=== PATIENT | female | born 1965 | race Caucasian/White ===

== ENCOUNTER 2018-01-14 06:36 | Day surgery (SDC) | payer OTHER ==
[~2018-01-14 06:36] MED LIST: Lactated Ringers 1,000 ML IV SCH
[2018-01-14] MEDS ORDERED: Lactated Ringers 1,000 ML IV SCH (07:15)
[2018-01-14] MEDS ORDERED: fentaNYL 100 MCG/2 ML SDV ONE (07:51)
[2018-01-14] MEDS ORDERED: Propofol 200 MG/20 ML SDV ONE (07:51)
[2018-01-14 09:26] VITALS: BP 97/58
--- NOTE | 2018-01-14 11:16 | OR ---
DATE OF SURGERY: 01/14/2018. REFERRING PROVIDER: CASSIDY Joya. PRE-OPERATIVE DIAGNOSES: Screening colonoscopy. This is the patient's first colonoscopy. There is no known family history of colon cancer or colon polyps. POST-OPERATIVE DIAGNOSES: 1. A 5 mm polyp at 25 cm removed with hot snare. 2. Otherwise normal colon. PROCEDURE: Colonoscopy with polypectomy x1 using hot snare. SURGEON: Christo Wilder M.D. ANESTHESIA: Monitored anesthesia care. BOWEL PREP: Good. DESCRIPTION OF PROCEDURE: Franci is a 52-year-old female, who was brought to the endoscopy suite after discussing risks and benefits of the procedure. Informed consent was obtained for conscious sedation and colonoscopy with or without biopsy and/or polypectomy. We also discussed possibility of missed lesions. Pre-procedure exam was unremarkable. IV, oxygen, and monitors were placed. The patient was placed in the left lateral decubitus position. Sedation was administered and a digital rectal exam was performed and unremarkable. Colonoscope was passed into the rectum and slowly advanced all the way to the cecum. Cecum was viewed and photographed. The colonoscope was slowly withdrawn and the mucosa was closed observed in a direct circumferential manner. The ascending colon was unremarkable. The transverse colon was unremarkable. The descending colon was unremarkable. The sigmoid colon did reveal 5 mm polyp at 25 cm with anal verge. This was photographed and removed with hot snare. Retroflexion was performed and rectal mucosa was unremarkable. Scope was removed. The patient tolerated the procedure well. The patient was monitored until that baseline status. Discharge instructions were reviewed and the patient was discharged in good condition. COMPLICATIONS: None. TOTAL TIME: 17 minutes. ESTIMATED BLOOD LOSS: None. RECOMMENDATIONS/FOLLOW-UP: We will await results of path report to determine ideal followup interval. We will have the patient avoid any aspirin for the next 3 days just to limit any chance of bleeding. I would like to kindly thank, Ariel Menjivar, for this referral. DMB: 01/14/2018 08:46:31 MODL: 01/14/2018 10:01:23 /[id number]
== END 2018-01-14 09:40 | disposition home or self-care (01) ==
LOC: VM.SDS 06:36
PROVIDERS: ATTEND Family Medicine
DX: Z12.11 Encounter for screening for malignant neoplasm of colon (principal); D12.5 Benign neoplasm of sigmoid colon; E78.5 Hyperlipidemia, unspecified
CPT/HCPCS: J2704; J3010; J7120